=== PATIENT | female | born 1995 | race Two or more races ===

== ENCOUNTER 2021-08-08 13:52 | Emergency (ER) | payer MEDICAID ==
[~2021-08-08] VITALS: Ht 152.4 cm; Wt 67.7 kg
[2021-08-08 13:55] VITALS: BP 133/80
[2021-08-08] MEDS ORDERED: ketorolac tromethamine 15mg/ml inj. IM ONE (14:20)
[2021-08-08] MEDS ORDERED: orphenadrine citrate 60mg/2ml inj. IM ONE (14:20)
[2021-08-08] MEDS ORDERED: CYCL-1 PO (14:47)
[2021-08-08] MEDS ORDERED: IBUP-1984 PO (14:47)
== END 2021-08-08 15:12 | disposition home or self-care (01) ==
LOC: ER 13:53
DX: M54.50 Low back pain, unspecified (principal); M25.512 Pain in left shoulder; Z88.0 Allergy status to penicillin; Z79.899 Other long term (current) drug therapy
CPT/HCPCS: 99283

== ENCOUNTER 2024-11-12 12:37 | Emergency (ER) | payer BC, MEDICAID ==
[~2024-11-12] VITALS: Ht 152.4 cm; Wt 62.9 kg
[~2024-11-12 12:37] MED LIST: CYCL-1 PO
[2024-11-12 12:50] VITALS: BP 117/72; PULSE 100; RESP 15; O2SAT 96
[2024-11-12] MEDS ORDERED: SULF1TAB49 PO (14:36)
[2024-11-12 15:04] VITALS: TEMP 99.6
== END 2024-11-12 15:05 | disposition home or self-care (01) ==
LOC: ER 12:38
DX: H00.031 Abscess of right upper eyelid (principal); Z88.0 Allergy status to penicillin; Z79.899 Other long term (current) drug therapy
CPT/HCPCS: 99283